=== PATIENT | female | born 1965 | race Caucasian/White ===

== ENCOUNTER 2021-04-22 08:23 | Inpatient (IN) | payer OTHER ==
--- NOTE | 2021-04-22 09:06 | ED ---
Abdominal Pain HPI - General Chief Complaint: Abdominal Pain Stated Complaint: abd bloating Time Seen by Provider: 04/22/21 08:35 Source: patient, RN notes reviewed Mode of arrival: ambulatory Limitations: no limitations - History of Present Illness Initial Comments: 55-year-old female presents emergency Department chief complaint of abdominal pain, swelling. Patient states that she has known liver disease and which she has had paracentesis in the past she states she's not had any issues in over a year denies any alcohol use. She states she is 2 years sober. Patient states that she has extensive swelling especially in her abdomen and lower legs she is on 2 diuretics currently. She has fevers or chills. Patient also has noticed that she has some yellowing of her skin and eyes. - Related Data Home Medications Medication Instructions Recorded Confirmed Ibuprofen [Advil] 600 mg PO Q8HR PRN 05/29/15 04/22/21 Multivit with Calcium,Iron,Min 1 tab PO DAILY 05/29/15 04/22/21 [Women's Daily Multivitamin] Omeprazole [PriLOSEC] 20 mg PO AC-BID 05/29/15 04/22/21 Albuterol Sulfate [Proair Hfa] 1 - 2 puff INHALATION RT-QID PRN 04/22/21 04/22/21 Cholecalciferol [Vitamin D3 (25 25 mcg PO DAILY 04/22/21 04/22/21 Mcg = 1000 Iu)] Folic Acid 0.8 mg PO DAILY 04/22/21 04/22/21 Furosemide [Lasix] 20 mg PO DAILY 04/22/21 04/22/21 Liver Aid 1 tab PO DAILY 04/22/21 04/22/21 Magnesium 250 mg PO DAILY 04/22/21 04/22/21 Milk Thistle 150 mg PO DAILY 04/22/21 04/22/21 Potassium Gluconate 99 mg PO DAILY 04/22/21 04/22/21 Spironolactone [Aldactone] 50 mg PO DAILY 04/22/21 04/22/21 Allergies Allergy/AdvReac Type Severity Reaction Status Date / Time No Known Allergies Allergy Verified 04/22/21 09:09 Review of Systems ROS Statement: Those systems with pertinent positive or pertinent negative responses have been documented in the HPI. ROS Other: All systems not noted in ROS Statement are negative. Past Medical History Past Medical History: GERD/Reflux, Liver Disease Additional Past Medical History / Comment(s): Blood in stool, cirrhosis of liver History of Any Multi-Drug Resistant Organisms: None Reported Past Surgical History: Hysterectomy, Tubal Ligation Past Anesthesia/Blood Transfusion Reactions: No Reported Reaction Past Psychological History: No Psychological Hx Reported Smoking Status: Former smoker Past Alcohol Use History: None Reported Past Drug Use History: None Reported - Past Family History Mother Family Medical History: Cancer General Exam Limitations: no limitations General appearance: alert, in no apparent distress Head exam: Present: atraumatic, normocephalic, normal inspection Eye exam: Present: PERRL, EOMI, scleral icterus. Absent: normal appearance, conjunctival injection, periorbital swelling ENT exam: Present: normal exam, normal oropharynx, mucous membranes moist, TM's normal bilaterally Neck exam: Present: normal inspection, full ROM. Absent: tenderness, meningismus, lymphadenopathy Respiratory exam: Present: normal lung sounds bilaterally. Absent: respiratory distress, wheezes, rales, rhonchi, stridor Cardiovascular Exam: Present: regular rate, normal rhythm, normal heart sounds. Absent: systolic murmur, diastolic murmur, rubs, gallop, clicks GI/Abdominal exam: Present: soft, distended, tenderness, rigid, normal bowel sounds. Absent: guarding, rebound Extremities exam: Present: normal capillary refill, pedal edema. Absent: calf tenderness Neurological exam: Present: alert Course Vital Signs 04/22/21 08:30 Temperature 99.4 F Pulse Rate 84 Respiratory 16 Rate Blood Pressure 105/64 O2 Sat by Pulse 98 Oximetry Medical Decision Making - Medical Decision Making 55-year-old female presents emergency Department chief complaint of jaundice, abdominal pain and swelling. Patient's found to have very large on of ascites, abdominal distention. Bilirubin is 5.5. Patient is found is currently. Patiently admitted for paracentesis, GI evaluation. - Lab Data Result diagrams: 04/22/21 09:03 Lab Results 04/22/21 04/22/21 04/22/21 Range/Units 09:03 09:03 09:03 PT 11.8 (9.0-12.0) sec INR 1.1 (<1.2) APTT 27.0 (22.0-30.0) sec Sodium 136 L (137-145) mmol/L Potassium 3.5 (3.5-5.1) mmol/L Chloride 102 (98-107) mmol/L Carbon Dioxide 27 (22-30) mmol/L Anion Gap 7 mmol/L BUN 5 L (7-17) mg/dL Creatinine 0.77 (0.52-1.04) mg/dL Est GFR (CKD-EPI)AfAm >90 (>60 ml/min/1.73 sqM) Est GFR (CKD-EPI)NonAf 87 (>60 ml/min/1.73 sqM) Glucose 102 H (74-99) mg/dL Plasma Lactic Acid Xander (0.7-2.0) mmol/L Calcium 8.9 (8.4-10.2) mg/dL Magnesium 1.9 (1.6-2.3) mg/dL Total Bilirubin 5.5 H (0.2-1.3) mg/dL AST 106 H (14-36) U/L ALT 19 (4-34) U/L Alkaline Phosphatase 449 H (38-126) U/L Total Protein 6.7 (6.3-8.2) g/dL Albumin 3.2 L (3.5-5.0) g/dL Amylase 42 (30-110) U/L Lipase 128 (23-300) U/L Urine Color Dark Yellow Urine Appearance Cloudy H (Clear) Urine pH 6.5 (5.0-8.0) Ur Specific [place] 1.011 (1.001-1.035) Urine Protein Trace H (Negative) Urine Glucose (UA) Negative (Negative) Urine Ketones Negative (Negative) Urine Blood Negative (Negative) Urine Nitrite Negative (Negative) Urine Bilirubin 2+ H (Negative) Urine Urobilinogen 12.0 (<2.0) mg/dL Ur Leukocyte Esterase Negative (Negative) Urine RBC 1 (0-5) /hpf Urine WBC 7 H (0-5) /hpf Ur Squamous Epith Cells 17 H (0-4) /hpf Amorphous Sediment Rare H (None) /hpf Urine Bacteria Occasional H (None) /hpf Hyaline Casts 5 H (0-2) /lpf Urine Mucus Rare H (None) /hpf 07/26/21 Range/Units 09:03 PT (9.0-12.0) sec INR (<1.2) APTT (22.0-30.0) sec Sodium (137-145) mmol/L Potassium (3.5-5.1) mmol/L Chloride (98-107) mmol/L Carbon Dioxide (22-30) mmol/L Anion Gap mmol/L BUN (7-17) mg/dL Creatinine (0.52-1.04) mg/dL Est GFR (CKD-EPI)AfAm (>60 ml/min/1.73 sqM) Est GFR (CKD-EPI)NonAf (>60 ml/min/1.73 sqM) Glucose (74-99) mg/dL Plasma Lactic Acid Xander 2.6 H* (0.7-2.0) mmol/L Calcium (8.4-10.2) mg/dL Magnesium (1.6-2.3) mg/dL Total Bilirubin (0.2-1.3) mg/dL AST (14-36) U/L ALT (4-34) U/L Alkaline Phosphatase (38-126) U/L Total Protein (6.3-8.2) g/dL Albumin (3.5-5.0) g/dL Amylase (30-110) U/L Lipase (23-300) U/L Urine Color Urine Appearance (Clear) Urine pH (5.0-8.0) Ur Specific [place] (1.001-1.035) Urine Protein (Negative) Urine Glucose (UA) (Negative) Urine Ketones (Negative) Urine Blood (Negative) Urine Nitrite (Negative) Urine Bilirubin (Negative) Urine Urobilinogen (<2.0) mg/dL Ur Leukocyte Esterase (Negative) Urine RBC (0-5) /hpf Urine WBC (0-5) /hpf Ur Squamous Epith Cells (0-4) /hpf Amorphous Sediment (None) /hpf Urine Bacteria (None) /hpf Hyaline Casts (0-2) /lpf Urine Mucus (None) /hpf Disposition Clinical Impression: Liver cirrhosis, Jaundice, Ascites Disposition: ADMITTED IP TO THIS [facility] Condition: Fair Referrals: None,Stated [Primary Care Provider] - 1-2 days
[2021-04-22 09:45] LABS: ALT 19 U/L (4-34); AST 106 U/L (14-36); African American GFR (CKD) >90 (>60 ml/min/1.73 sqM); Albumin 3.2 g/dL (3.5-5.0); Alkaline Phosphatase 449 U/L (38-126); Amylase 42 U/L (30-110); Anion Gap 7 mmol/L; Blood Urea Nitrogen 5 mg/dL (7-17); Calcium 8.9 mg/dL (8.4-10.2); Carbon Dioxide 27 mmol/L (22-30); Chloride 102 mmol/L (98-107); Glucose 102 mg/dL (74-99); Lipase 128 U/L (23-300); Magnesium 1.9 mg/dL (1.6-2.3); Non-African American GFR(CKD) 87 (>60 ml/min/1.73 sqM); Potassium 3.5 mmol/L (3.5-5.1); Sodium 136 mmol/L (137-145); Total Bilirubin 5.5 mg/dL (0.2-1.3); Total Protein 6.7 g/dL (6.3-8.2)
[2021-04-22 09:52] LABS: Amorphous Sediment,Urine Rare /hpf; Appearance,Urine Cloudy (Clear); Bacteria,Urine Occasional /hpf; Bilirubin,Urine 2+ (Negative); Blood,Urine Negative (Negative); Color,Urine Dark Yellow; Glucose,Urine (UA) Negative (Negative); Hyaline Casts,Urine 5 /lpf (0-2); Ketones,Urine Negative (Negative); Leukocyte Esterase,Urine Negative (Negative); Mucus,Urine Rare /hpf; Nitrite,Urine Negative (Negative); PH, Urine 6.5 (5.0-8.0); Protein,Urine Trace (Negative); RBC,Urine 1 /hpf (0-5); Specific Gravity,Urine 1.011 (1.001-1.035); Squamous Epithelial Cell,Urine 17 /hpf (0-4); WBC,Urine 7 /hpf (0-5)
[2021-04-22 09:53] LABS: INR 1.1 (<1.2); Prothrombin Time 11.8 sec (9.0-12.0)
[2021-04-22] MEDS ORDERED: NALOXONE 0.4 MG/ML 1 ML VIAL IV PRN (10:07)
[2021-04-22] MEDS ORDERED: ONDANSETRON 4 MG/2 ML VIAL IVP PRN (10:07)
[2021-04-22 10:10] LABS: Basophils % (A) 1 %; Eosinophils % (A) 0 %; HCT 35.1 % (34.0-46.0); HGB 11.5 gm/dL (11.4-16.0); Lymphocytes # (A) 1.6 k/uL (1.0-4.8); Lymphocytes % (A) 20 %; MCH 36.3 pg (25.0-35.0); MCHC 32.7 g/dL (31.0-37.0); MCV 111.1 fL (80.0-100.0); Macrocytosis Marked; Mean Platelet Volume 8.3; Monocytes # (A) 0.4 k/uL (0-1.0); Monocytes % (A) 5 %; Neutrophils % (A) 72 %; Platelet Count 304 k/uL (150-450); RBC 3.16 m/uL (3.80-5.40); RDW 14.5 % (11.5-15.5); WBC 8.3 k/uL (3.8-10.6)
[2021-04-22] MEDS: HYDROmorphone 0.5 MG/0.5 ML SYRINGE IVP PRN ×4 (12:01→23:18)
[2021-04-22] MEDS ORDERED: ALBUTEROL NEBULIZED 2.5 MG/3 ML INHALATION PRN (13:24)
--- NOTE | 2021-04-22 13:28 | US ---
EXAMINATION TYPE: US abdomen limited DATE OF EXAM: 04/22/2021 COMPARISON: NONE CLINICAL HISTORY: 55-year-old female assess for fluid pocket please . Ascites check TECHNIQUE: Multiple sonographic images of the 4 abdominal quadrants for assessment of ascites fluid. FINDINGS: Trace to mild fluid seen within RUQ, RLQ and LLQ. No fluid seen in LUQ. IMPRESSION: Trace to mild abdominal ascites fluid noted within the right side of the abdomen and also within the left lower quadrant.
[2021-04-22] MEDS: diphenhydrAMINE 25 MG CAP PO PRN ×2 (13:34→20:10)
[2021-04-22] MEDS ORDERED: FUROSEMIDE 10 MG/ML 4 ML VIAL IV STA (13:42)
--- NOTE | 2021-04-22 14:54 | US ---
EXAMINATION TYPE: US liver DATE OF EXAM: 04/22/2021 COMPARISON: None CLINICAL HISTORY: 55-year-old female ascites, new jaundice, please assess gallbladder. RLQ pain EXAM MEASUREMENTS: Liver Length: 19.8 cm Gallbladder Wall: 0.4 cm CBD: 0.4 cm Right Kidney: 10.2 x 5.0 x 3.9 cm Pancreas: Echogenic. The body and tail is obscured by overlying bowel gas Liver: abnormally enlarged; ascites is noted surrounding; portal vein flow is noted to liver, veloci ty between 10 and 15 cm/s; hepatic vein flow is not detected within the liver just at the IVC. Gallbladder: multiple gallstones/sludge seen in neck mid and fundus and still present at neck in LLD position and fundal gallstones also seen. No abnormal gallbladder distention. The wall is borderline to mildly thickened. Evidence for sonographic Sandy's sign: no CBD: wnl Right Kidney: No hydronephrosis. IMPRESSION: 1. No biliary ductal dilatation. 2. Cholelithiasis. There is nonspecific borderline to mild gallbladder wall thickening. No hydropic c hange to further support acute cholecystitis. If further imaging evaluation of the gallbladder is vladimir ired, HIDA scan can be considered. 3. Mild perihepatic ascites visualized. 4. Borderline diminished portal vein velocity. If there is underlying hepatitis or cirrhosis, finding s may reflect early portal venous hypertension. 5. The cardiograph operator was unable to visualize distal hepatic vein flow on color Doppler. This is most li zunilda on a technical basis. To ensure patency, consideration can be given to either Doppler ultrasound follow-up versus contrast-enhanced CT performed in the late portal venous phase (approximately 80 se c delay)
--- NOTE | 2021-04-22 14:56 | P.HPIM ---
History of Present Illness H&P Date: 04/22/21 Chief Complaint: abdominal distension Patient is a 55-year-old female with a history of cirrhosis, GERD, and prior tobacco abuse who presented to the ER with complaints of abdominal pain and swelling. On arrival her vital signs within normal limits. Laboratory analysis showed a lactic acid of 2.6, total bilirubin 5.5, AST 106, ALT 19, alkaline phosphatase 499. She was admitted for further monitoring and possible need for paracentesis. Patient seen and examined at bedside. Noticed increasingg edema in her legs and abdomen over the last 2 days, legs for the last couple of weeks. Started itching during that time. + SOB with exerction, +nuasea with intermittent vomiting that is chorinc. Did have 2 beers a couple of days ago, otherwise as maintained sobriety for years. Last time she needed paracentesis was 1 year ago. Hx of higher doses of lasix and spironolactone but then we decreased back to her lowe dose. Cirrhosis is from hx of alcoholism. Follows with Dr. Bolanos ([facility]) in [facility] where she lives. Pertinent positives and negatives as discussed in HPI, a complete review of systems was performed and all other systems are negative. Patient seen and examined at bedside. General: non toxic, no distress, appears at stated age Derm: + Jaundice, warm, dry Head: atraumatic, normocephalic, symmetric Eyes: EOMI, no lid lag, + icteric sclera, pupils equal round reactive to light ENT: Nose and ears atraumatic, no thrush, no pharyngeal erythema Neck: No thyromegaly, no cervical lymphadenopathy, trachea midline, supple Mouth: no lip lesion, mucus membranes moist Cardiovascular: S1S2 reg, no murmur, positive posterior tibial pulse bilateral, 2+ edema, capillary refill less than 2 seconds Lungs: clear to ascultation bilateral, no ronchi, no rales, no wheeze, no accessory muscle use Abdominal: soft, + distended, + tender to palpation RUQ, no guarding, no appreciable organomegaly, normal bowel sounds Ext: no gross muscle atrophy, muscle strength muscle strength 5 out of 5 in all 4 extremities, no contractures Neuro: CN II-XI grossly intact, light touch intact all 4 extremities, finger to nose within normal limits, Psych: Alert, oriented, appropriate affect Decompensated cirrhosis secondary to prior alcoholism -Consult IR for paracentesis -IV Lasix, spironolactone -GI recommendations Transaminitis with elevated bilirubin -Patient with recent worsening jaundice -Check liver Doppler and gallbladder ultrasound -Repeat CMP in a.m. COPD without exacerbation -Resume ipratropium, patient takes spiriva on outpatient basis -When necessary bronchodilators The patient is admitted with an anticipated greater than 2 midnight stay for evaluation of Decompensated cirrhosis. Surrogate decision-maker: daughter DVT prophylaxis: SCDs Discussed with: patient, nursing Anticipated discharge date: in 1-[address]: home A total of 65 minutes was spent on the care of this complex patient more than 50% of the time was spent in counseling and care coordination. Past Medical History Past Medical History: GERD/Reflux, Liver Disease Additional Past Medical History / Comment(s): Blood in stool, cirrhosis of liver due to alcoholsim, COPD History of Any Multi-Drug Resistant Organisms: None Reported Past Surgical History: Hysterectomy, Tubal Ligation Additional Past Surgical History / Comment(s): liver biopsy Past Anesthesia/Blood Transfusion Reactions: No Reported Reaction Past Psychological History: No Psychological Hx Reported Smoking Status: Former smoker Past Alcohol Use History: None Reported Past Drug Use History: None Reported Additional Drug Use History / Comment(s): hx of alcholism, had a beer 2 nights ago Additional History: L[facility] IN [facility] - Past Family History Mother Family Medical History: Cancer Medications and Allergies Home Medications Medication Instructions Recorded Confirmed Type Ibuprofen [Advil] 600 mg PO Q8HR PRN 05/29/15 04/22/21 History Multivit with Calcium,Iron,Min 1 tab PO DAILY 05/29/15 04/22/21 History [Women's Daily Multivitamin] Omeprazole [PriLOSEC] 20 mg PO AC-BID 05/29/15 04/22/21 History Albuterol Sulfate [Proair Hfa] 1 - 2 puff INHALATION RT-QID PRN 04/22/21 04/22/21 History Cholecalciferol [Vitamin D3 (25 25 mcg PO DAILY 04/22/21 04/22/21 History Mcg = 1000 Iu)] Folic Acid 0.8 mg PO DAILY 04/22/21 04/22/21 History Furosemide [Lasix] 20 mg PO DAILY 04/22/21 04/22/21 History Liver Aid 1 tab PO DAILY 04/22/21 04/22/21 History Magnesium 250 mg PO DAILY 04/22/21 04/22/21 History Milk Thistle 150 mg PO DAILY 04/22/21 04/22/21 History Potassium Gluconate 99 mg PO DAILY 04/22/21 04/22/21 History Spironolactone [Aldactone] 50 mg PO DAILY 04/22/21 04/22/21 History Allergies Allergy/AdvReac Type Severity Reaction Status Date / Time No Known Allergies Allergy Verified 04/22/21 09:09 Physical Exam Osteopathic Statement: *. No significant issues noted on an osteopathic structural exam other than those noted in the History and Physical/Consult. Vitals: Vital Signs Temp Pulse Resp BP Pulse Ox 04/22/21 12:00 75 18 105/64 97 04/22/21 10:45 98.9 F 79 18 108/54 97 04/22/21 08:30 99.4 F 84 16 105/64 98 Intake and Output 04/21/21 04/22/21 04/22/21 22:59 06:59 14:59 Other: Weight 95.254 kg Results CBC & Chem 7: 04/22/21 09:03 04/22/21 09:03 Labs: Abnormal Lab Results - Last 24 Hours (Table) 04/22/21 04/22/21 04/22/21 Range/Units 09:03 09:03 09:03 RBC 3.16 L (3.80-5.40) m/uL MCV 111.1 H (80.0-100.0) fL MCH 36.3 H (25.0-35.0) pg Macrocytosis Marked A Sodium 136 L (137-145) mmol/L BUN 5 L (7-17) mg/dL Glucose 102 H (74-99) mg/dL Plasma Lactic Acid Xander (0.7-2.0) mmol/L Total Bilirubin 5.5 H (0.2-1.3) mg/dL AST 106 H (14-36) U/L Alkaline Phosphatase 449 H (38-126) U/L Albumin 3.2 L (3.5-5.0) g/dL Urine Appearance Cloudy H (Clear) Urine Protein Trace H (Negative) Urine Bilirubin 2+ H (Negative) Urine WBC 7 H (0-5) /hpf Ur Squamous Epith Cells 17 H (0-4) /hpf Amorphous Sediment Rare H (None) /hpf Urine Bacteria Occasional H (None) /hpf Hyaline Casts 5 H (0-2) /lpf Urine Mucus Rare H (None) /hpf 04/22/21 Range/Units 09:03 RBC (3.80-5.40) m/uL MCV (80.0-100.0) fL MCH (25.0-35.0) pg Macrocytosis Sodium (137-145) mmol/L BUN (7-17) mg/dL Glucose (74-99) mg/dL Plasma Lactic Acid Xander 2.6 H* (0.7-2.0) mmol/L Total Bilirubin (0.2-1.3) mg/dL AST (14-36) U/L Alkaline Phosphatase (38-126) U/L Albumin (3.5-5.0) g/dL Urine Appearance (Clear) Urine Protein (Negative) Urine Bilirubin (Negative) Urine WBC (0-5) /hpf Ur Squamous Epith Cells (0-4) /hpf Amorphous Sediment (None) /hpf Urine Bacteria (None) /hpf Hyaline Casts (0-2) /lpf Urine Mucus (None) /hpf
[2021-04-22] MEDS ORDERED: FUROSEMIDE 40 MG TAB PO SCH (16:00)
[2021-04-22] MEDS: IPRATROPIUM 0.5 MG/2.5 ML NEBU INHALATION SCH ×2 (17:42→18:35)
--- NOTE | 2021-04-22 21:02 | CONS ---
CONSULTATION DATE OF SERVICE: 04/23/2021 REQUESTING PHYSICIAN: Dr. Jane Ordonez. REASON FOR CONSULTATION: Abdominal distention and ascites. HISTORY OF PRESENT ILLNESS: The patient is a 55-year-old pleasant white female who was diagnosed with alcoholic cirrhosis of the liver about 2 years ago while she was living in [place]. She is visiting this area to spend the summer for 3 months and for the last 2 or 3 weeks she is having gradual abdominal distention with progressive weight gain and lower extremity swelling. She came to the emergency room and subsequently admitted to the hospital for further management. She thinks she gained about 10 or 15 pounds in the last several weeks. She denies any abdominal pain, but she does have some abdominal discomfort, especially in the suprapubic area where she has significant swelling noted. She denies any nausea, vomiting. No rectal bleeding or melena. Patient states that she was diagnosed with alcoholic cirrhosis of the liver about 2 years ago and she quit drinking alcohol at that time. She underwent paracentesis about a year ago and after that she was maintained on diuretics with Lasix 20 mg daily and Aldactone 50 mg daily. In the ER she did have abdominal ultrasound done which showed trace to mild amount of abdominal ascites. PAST MEDICAL HISTORY: Significant for alcoholic cirrhosis of the liver diagnosed about 2 years ago, paracentesis about a year ago, history of GERD, anxiety. PAST SURGICAL HISTORY: Hysterectomy, tubal ligation. MEDICATIONS: Medications at home include potassium, Aldactone, magnesium, Lasix, Advil, vitamin D3, albuterol. ALLERGIES: None. SOCIAL HISTORY: Former smoker. History of heavy alcohol use for many years, quit drinking about 2 years ago. FAMILY HISTORY: Mother had some kind of cancer. REVIEW OF SYSTEMS: CARDIOPULMONARY: No chest pain or shortness of breath. : No dysuria or hematuria. MUSCULOSKELETAL: Unremarkable. SKIN: Unremarkable. ENDOCRINE: Unremarkable. PSYCHIATRY: Unremarkable. NEUROLOGY: Generalized weakness. ENT/VISION: Unremarkable. CONSTITUTIONAL: Weight gain of 20 pounds. No fever, chills, or night sweats. PHYSICAL EXAMINATION: She appears comfortable. No apparent distress. VITAL SIGNS: Stable. Blood pressure is 105/64, pulse is 75, temperature 98.9. HEENT examination unremarkable. Conjunctivae pink. Sclerae anicteric. Oral cavity no lesions. NECK no JVD or lymph node enlargement. CHEST was clear to auscultation. HEART: Regular rate and rhythm. ABDOMEN: Distended. It was obese. There was significant amount of edema on the anterior abdominal wall and mostly in the suprapubic area. EXTREMITIES: 2+ pedal edema. SKIN: No rashes. NEURO: She is alert and oriented x3. No focal deficits. LABS: From today WBC 8.3, hemoglobin 11.5, platelets normal. PTT INR is within normal limits. Sodium 136, potassium 3.5, chloride 102, CO2 27, BUN 5, creatinine 0.77. AST 106, ALT 19, T bilirubin 5.5, alkaline phosphatase 449. IMPRESSION: 1. Abdominal distention for the last few weeks duration associated with lower extremity swelling. Ultrasound showed trace to mild ascites noted. The patient has significant anterior wall abdominal edema causing abdominal distention based on the imaging studies. She is on Lasix 20 and Aldactone 50 mg daily for the last one year. 2. Alcoholic cirrhosis of the liver with gradual decompensation. 3. Elevated LFTs and jaundice all related to chronic alcoholic liver disease. RECOMMENDATIONS: 1. Increase the Lasix to 40 mg twice daily and Aldactone 100 mg daily. 2. Low-salt diet. 3. Await final report of the ultrasound of the abdomen. 4. Monitor labs closely. 5. We will follow with you. Thank you for this consultation. MMODL / IJN: [id number] /
[2021-04-22] MEDS: FUROSEMIDE 10 MG/ML 4 ML VIAL IV SCH (21:11)
[2021-04-23] MEDS: HYDROmorphone 0.5 MG/0.5 ML SYRINGE IVP PRN ×7 (02:26→22:24)
[2021-04-23 06:21] LABS: HCT 34.5 % (34.0-46.0); HGB 11.2 gm/dL (11.4-16.0); MCH 36.5 pg (25.0-35.0); MCHC 32.5 g/dL (31.0-37.0); MCV 112.2 fL (80.0-100.0); Mean Platelet Volume 8.6; Platelet Count 293 k/uL (150-450); RBC 3.07 m/uL (3.80-5.40); RDW 13.6 % (11.5-15.5); WBC 8.9 k/uL (3.8-10.6)
[2021-04-23 06:38] LABS: Macrocytosis Marked
[2021-04-23] MEDS: IPRATROPIUM 0.5 MG/2.5 ML NEBU INHALATION SCH ×4 (07:05→19:14)
[2021-04-23] MEDS: SPIRONOLACTONE 25 MG TAB PO SCH (07:14)
[2021-04-23] MEDS: FUROSEMIDE 10 MG/ML 4 ML VIAL IV SCH ×2 (07:14→20:30)
[2021-04-23 11:51] LABS: African American GFR (CKD) 72.9 (60.0-200.0); Albumin 3.4 g/dL (3.80-4.90); Albumin/Globulin Ratio 1.03 (1.60-3.17); Anion Gap 11.3 mmol/L (4.00-12.00); Calcium 8.6 mg/dL (8.7-10.3); Carbon Dioxide 29.7 mmol/L (21.6-31.8); Globulin 3.3 g/dL (1.6-3.3); Non-African American GFR(CKD) 62.9 (60.0-200.0); Potassium 3.2 mmol/L (3.5-5.5); Total Bilirubin 6.1 mg/dL (0.2-1.2); Total Protein 6.7 g/dL (6.2-8.2)
[2021-04-23 11:58] LABS: INR 1.16 (0.90-1.11); Prothrombin Time 12.5 sec (9.9-11.9)
[2021-04-23] MEDS ORDERED: POTASSIUM CHLORIDE ER 20 MEQ TAB.ER PO STA (12:38)
--- NOTE | 2021-04-23 13:24 | P.PN ---
Subjective Progress Note Date: 04/23/21 Principal diagnosis: abdominal pain Patient is a 55-year-old female with a history of cirrhosis, GERD, and prior tobacco abuse who presented to the ER with complaints of abdominal pain and swelling. On arrival her vital signs within normal limits. Laboratory analysis showed a lactic acid of 2.6, total bilirubin 5.5, AST 106, ALT 19, alkaline phosphatase 499. She was admitted for further monitoring and possible need for paracentesis. Liver US demonstrated no significant ascities. She did have a liver doppler and gallbladder US which showed gallstone and borderline dimmin ished portal vein velocity. She was started on lasix IVP and her spironolactone was increased. Patient seen and examined at bedside. She reports that she is having less abdominal pain and yesterday. She thinks she eats quite a bit yesterday with the Lasix but has had less urine output today. She denies any nausea or vomiting. General: non toxic, no distress, appears at stated age Derm: + Jaundice warm, dry Head: atraumatic, normocephalic, symmetric Eyes: EOMI, no lid lag, + icteric sclera Mouth: no lip lesion, mucus membranes moist Cardiovascular: S1S2 reg, no murmur, positive posterior tibial pulse bilateral, Lungs: CTA bilateral, no rhonchi, no rales , no accessory muscle use Abdominal: soft, distended, nontender to palpation, no guarding, no appreciable organomegaly Ext: no gross muscle atrophy, 1+ edema, no contractures Neuro: CN II-XI grossly intact, no focal neuro deficits Psych: Alert, oriented, appropriate affect Decompensated cirrhosis secondary to prior alcoholism -Not enough fluid for paracentesis -IV Lasix, spironolactone -GI recommendations appreciated -Bilirubin elevating, will repeat in a.m. Transaminitis with elevated bilirubin -Patient with recent worsening jaundice -Patient's gallbladder ultrasound with asymptomatic cholelithiasis, no dilated common bile duct, no definitive portal vein thrombosis -GI recommendations -Repeat CMP in a.m. COPD without exacerbation -Resume ipratropium, patient takes spiriva on outpatient basis, patient now thinks she takes Symbicort on an outpatient basis -When necessary bronchodilators Obesity, BMI 40.1 - likely secondary to fluid retention - outpatient structured weight loss DVT prophylaxis: SCDs Discussed with: patient, nursing Anticipated discharge date: in 1-[address]: home A total of 65 minutes was spent on the care of this complex patient more than 50% of the time was spent in counseling and care coordination. Objective - Vital Signs Vital signs: Vital Signs Temp 97.5 F L 04/23/21 12:14 Pulse 74 04/23/21 12:14 Resp 18 04/23/21 12:14 BP 102/65 04/23/21 12:14 Pulse Ox 97 04/23/21 12:14 Intake & Output 04/22/21 04/23/21 04/23/21 18:59 06:59 18:59 Intake Total 240 Balance 240 Weight 95.254 kg 96.2 kg Intake: Oral 240 Other: # Voids 1 - Labs CBC & Chem 7: 04/23/21 05:41 04/23/21 05:41 Labs: Abnormal Lab Results - Last 24 Hours (Table) 04/23/21 04/23/21 04/23/21 Range/Units 05:41 05:41 05:41 RBC 3.07 L (3.80-5.40) m/uL Hgb 11.2 L (11.4-16.0) gm/dL MCV 112.2 H (80.0-100.0) fL MCH 36.5 H (25.0-35.0) pg Macrocytosis Marked A PT 12.5 H (9.9-11.9) sec INR 1.16 H (0.90-1.11) Potassium 3.2 L (3.5-5.5) mmol/L BUN 7.0 L (9.0-27.0) mg/dL BUN/Creatinine Ratio 7.00 L (12.00-20.00) Ratio Calcium 8.6 L (8.7-10.3) mg/dL Total Bilirubin 6.1 H (0.2-1.2) mg/dL AST 116 H (13-35) U/L Alkaline Phosphatase 411 H (41-126) U/L Albumin 3.40 L (3.80-4.90) g/dL Albumin/Globulin Ratio 1.03 L (1.60-3.17) g/dL
--- NOTE | 2021-04-23 16:38 | P.PN ---
Subjective Progress Note Date: 04/23/21 Principal diagnosis: Ascites, jaundice The 5-year-old female diagnosed with alcoholic cirrhosis of the liver about 2 years ago while living in [place]. She is currently visiting the area for the summer and for the last 2-3 weeks duration she's been having gradual abdominal distention with progressive weight gain and lower extremity swelling. Patient thinks she gained about 10-15 pounds the last several weeks. She's had extensive workup in [place] for cirrhosis of the liver, including a liver biopsy, EGD, and laboratory work. She has been maintained on Lasix 20 mg daily and Aldactone 50 mg daily. Abdominal ultrasound showed a trace to mild amount of ascites, unable to perform paracentesis. She had a liver ultrasound showed no biliary ductal dilation, cholelithiasis, there is nonspecific borderline to mild gallbladder wall thickening. No hydropic change to further support acute cholecystitis. Mild. Hepatic ascites, borderline diminished portal vein velocity. There is underlying hepatitis or cirrhosis findings may reflect early portal venous hypertension. Today the patient states she still having lower abdominal discomfort due to edema. Lower extremity edema has improved. She denies any nausea, vomiting, or fever. She is tolerating her diet. Objective - Vital Signs Vital signs: Vital Signs Temp 98.2 F 04/23/21 04:47 Pulse 82 04/23/21 07:16 Resp 16 04/23/21 04:47 BP 92/56 04/23/21 04:47 Pulse Ox 97 04/23/21 04:47 Intake & Output 04/22/21 04/23/21 04/23/21 18:59 06:59 18:59 Intake Total 240 Balance 240 Weight 95.254 kg 96.2 kg Intake: Oral 240 Other: # Voids 1 - Exam General appearance: The patient is alert, oriented, appears in no acute distress. HET: Head is normocephalic and atraumatic. Conjunctiva pink. Sclera anicteric. Neck: Supple without lymphadenopathy. Abdomen: Soft, tenderness in lower abdominal quadrant, anasarca, nondistended with bowel sounds. No guarding or rigidity. Extremities: Normal skin color and turgor. Lower extremity edema. Skin: No rashes, no jaundice Neurological: No focal deficits. Alert and oriented 3. - Labs CBC & Chem 7: 04/23/21 05:41 04/23/21 05:41 Labs: Abnormal Lab Results - Last 24 Hours (Table) 04/22/21 04/23/21 Range/Units 09:03 05:41 RBC 3.16 L 3.07 L (3.80-5.40) m/uL Hgb 11.2 L (11.4-16.0) gm/dL MCV 111.1 H 112.2 H (80.0-100.0) fL MCH 36.3 H 36.5 H (25.0-35.0) pg Macrocytosis Marked A Marked A Assessment and Plan (1) Abdominal pain Narrative/Plan: This is a 55-year-old female who presented to the emergency department with abdominal distention for the last few weeks duration associated with lower extremity swelling. She's had abdominal discomfort due to the distention. Ultrasound showed trace to mild ascites. The patient has had significant anterior wall edema causing abdominal distention based on the imaging studies. She is currently maintained on Lasix 20 mg and Aldactone 50 mg daily for the last 1 year. Current Visit: Yes Status: Acute Code(s): R10.9 - UNSPECIFIED ABDOMINAL PAIN SNOMED Code(s): 66101985 (2) Alcoholic cirrhosis of liver Narrative/Plan: Patient was diagnosed with alcoholic cirrhosis of the liver with gradual decompensation 2 years ago and is treated in [place]. She has elevated LFTs and jaundice related to chronic alcoholic liver disease. Current Visit: Yes Status: Acute Code(s): K70.30 - ALCOHOLIC CIRRHOSIS OF LIVER WITHOUT ASCITES SNOMED Code(s): 479540285 (3) Lower extremity edema Current Visit: Yes Status: Acute Code(s): R60.0 - LOCALIZED EDEMA SNOMED Code(s): 552449035 Plan: 1. Continue symptomatic and supportive care 2. Continue Lasix 40 mg twice daily and Aldactone 100 mg daily 3. Low-sodium diet 4. Liver ultrasound reviewed 5. Continue to monitor LFTs daily Thank you for this consultation, we will continue to follow. Dr. Guevara Jefferson I agree with the dictator's note, documented as a scribe by Widla Rose.
[2021-04-23] MEDS: diphenhydrAMINE 25 MG CAP PO PRN (19:16)
[2021-04-24 05:34] LABS: HCT 34.7 % (34.0-46.0); HGB 11.2 gm/dL (11.4-16.0); MCH 36.3 pg (25.0-35.0); MCHC 32.3 g/dL (31.0-37.0); MCV 112.3 fL (80.0-100.0); Macrocytosis Marked; Mean Platelet Volume 8.1; Platelet Count 321 k/uL (150-450); RBC 3.09 m/uL (3.80-5.40); RDW 14.2 % (11.5-15.5); WBC 8.6 k/uL (3.8-10.6)
[2021-04-24 05:39] LABS: ALT 19 U/L (4-34); AST 139 U/L (14-36); African American GFR (CKD) 58 (>60 ml/min/1.73 sqM); Albumin 3.5 g/dL (3.5-5.0); Alkaline Phosphatase 409 U/L (38-126); Anion Gap 12 mmol/L; Blood Urea Nitrogen 9 mg/dL (7-17); Calcium 8.9 mg/dL (8.4-10.2); Carbon Dioxide 29 mmol/L (22-30); Chloride 96 mmol/L (98-107); Globulin 3.6 g/dL; Glucose 107 mg/dL (74-99); Magnesium 1.7 mg/dL (1.6-2.3); Non-African American GFR(CKD) 50 (>60 ml/min/1.73 sqM); Potassium 3.5 mmol/L (3.5-5.1); Sodium 137 mmol/L (137-145); Total Bilirubin 5.6 mg/dL (0.2-1.3); Total Protein 7.1 g/dL (6.3-8.2)
[2021-04-24] MEDS: IPRATROPIUM 0.5 MG/2.5 ML NEBU INHALATION SCH ×4 (07:04→20:02)
[2021-04-24] MEDS: SPIRONOLACTONE 25 MG TAB PO SCH (07:24)
[2021-04-24] MEDS: FUROSEMIDE 10 MG/ML 4 ML VIAL IV SCH ×2 (07:24→19:31)
[2021-04-24] MEDS: HYDROmorphone 0.5 MG/0.5 ML SYRINGE IVP PRN ×5 (07:24→19:31)
--- NOTE | 2021-04-24 10:11 | P.PN ---
Subjective Progress Note Date: 04/24/21 Principal diagnosis: Ascites, jaundice The 5-year-old female diagnosed with alcoholic cirrhosis of the liver about 2 years ago while living in [place]. She is currently visiting the area for the summer and for the last 2-3 weeks duration she's been having gradual abdominal distention with progressive weight gain and lower extremity swelling. Patient thinks she gained about 10-15 pounds the last several weeks. She's had extensive workup in [place] for cirrhosis of the liver, including a liver biopsy, EGD, and laboratory work. She has been maintained on Lasix 20 mg daily and Aldactone 50 mg daily. Abdominal ultrasound showed a trace to mild amount of ascites, unable to perform paracentesis. She had a liver ultrasound showed no biliary ductal dilation, cholelithiasis, there is nonspecific borderline to mild gallbladder wall thickening. No hydropic change to further support acute cholecystitis. Mild Hepatic ascites, borderline diminished portal vein velocity. There is underlying hepatitis or cirrhosis findings may reflect early portal venous hypertension. Today the patient states she still having lower abdominal discomfort due to edema, but states is improved some. Lower extremity edema has improved. She denies any nausea, vomiting, or fever. She is tolerating her diet. Liver enzymes stable. Objective - Vital Signs Vital signs: Vital Signs Temp 97.7 F 04/24/21 05:00 Pulse 76 04/24/21 07:12 Resp 16 04/24/21 05:00 BP 100/66 04/24/21 05:00 Pulse Ox 98 04/24/21 05:00 Intake & Output 04/23/21 04/24/21 04/24/21 18:59 06:59 18:59 Intake Total 1160 Balance 1160 Intake: Oral 1160 Other: # Voids 2 2 - Exam General appearance: The patient is alert, oriented, appears in no acute distress. HET: Head is normocephalic and atraumatic. Conjunctiva pink. Sclera anicteric. Neck: Supple without lymphadenopathy. Abdomen: Soft, tenderness in lower abdominal quadrant, anasarca, nondistended with bowel sounds. No guarding or rigidity. Extremities: Normal skin color and turgor. Lower extremity edema. Skin: No rashes, no jaundice Neurological: No focal deficits. Alert and oriented 3. - Labs CBC & Chem 7: 04/24/21 04:15 04/24/21 04:15 Labs: Abnormal Lab Results - Last 24 Hours (Table) 04/23/21 04/23/21 04/24/21 Range/Units 05:41 05:41 04:15 RBC 3.09 L (3.80-5.40) m/uL Hgb 11.2 L (11.4-16.0) gm/dL MCV 112.3 H (80.0-100.0) fL MCH 36.3 H (25.0-35.0) pg Macrocytosis Marked A PT 12.5 H (9.9-11.9) sec INR 1.16 H (0.90-1.11) Potassium 3.2 L (3.5-5.5) mmol/L Chloride (98-107) mmol/L BUN 7.0 L (9.0-27.0) mg/dL Creatinine (0.52-1.04) mg/dL BUN/Creatinine Ratio 7.00 L (12.00-20.00) Ratio Glucose (74-99) mg/dL Calcium 8.6 L (8.7-10.3) mg/dL Total Bilirubin 6.1 H (0.2-1.2) mg/dL AST 116 H (13-35) U/L Alkaline Phosphatase 411 H (41-126) U/L Albumin 3.40 L (3.80-4.90) g/dL Albumin/Globulin Ratio 1.03 L (1.60-3.17) g/dL 04/24/21 Range/Units 04:15 RBC (3.80-5.40) m/uL Hgb (11.4-16.0) gm/dL MCV (80.0-100.0) fL MCH (25.0-35.0) pg Macrocytosis PT (9.9-11.9) sec INR (0.90-1.11) Potassium (3.5-5.5) mmol/L Chloride 96 L (98-107) mmol/L BUN (9.0-27.0) mg/dL Creatinine 1.21 H (0.52-1.04) mg/dL BUN/Creatinine Ratio (12.00-20.00) Ratio Glucose 107 H (74-99) mg/dL Calcium (8.7-10.3) mg/dL Total Bilirubin 5.6 H (0.2-1.2) mg/dL AST 139 H (13-35) U/L Alkaline Phosphatase 409 H (41-126) U/L Albumin (3.80-4.90) g/dL Albumin/Globulin Ratio (1.60-3.17) g/dL Assessment and Plan (1) Abdominal pain Narrative/Plan: This is a 55-year-old female who presented to the emergency department with ab dominal distention for the last few weeks duration associated with lower extremity swelling. She's had abdominal discomfort due to the distention. Ultrasound showed trace to mild ascites. The patient has had significant anterior wall edema causing abdominal distention based on the imaging studies. She is currently maintained on Lasix 20 mg and Aldactone 50 mg daily for the last 1 year. Current Visit: Yes Status: Acute Code(s): R10.9 - UNSPECIFIED ABDOMINAL PAIN SNOMED Code(s): 36126864 (2) Alcoholic cirrhosis of liver Narrative/Plan: Patient was diagnosed with alcoholic cirrhosis of the liver with gradual decompensation 2 years ago and is treated in [place]. She has elevated LFTs and jaundice related to chronic alcoholic liver disease. Current Visit: Yes Status: Acute Code(s): K70.30 - ALCOHOLIC CIRRHOSIS OF LIVER WITHOUT ASCITES SNOMED Code(s): 039388461 (3) Lower extremity edema Current Visit: Yes Status: Acute Code(s): R60.0 - LOCALIZED EDEMA SNOMED Code(s): 973363648 Plan: 1. Continue symptomatic and supportive care 2. Continue Lasix 40 mg twice daily and Aldactone 100 mg daily 3. Low-sodium diet 4. Liver ultrasound reviewed 5. Continue to monitor LFTs daily Thank you for this consultation, the patient is cleared for discharge from gastroenterology. Dr. Guevara Jefferson I agree with the dictator's note, documented as a scribe by Wilda Rose.
--- NOTE | 2021-04-24 19:00 | P.PN ---
Subjective Progress Note Date: 04/24/21 Principal diagnosis: abdominal pain Patient is a 55-year-old female with a history of cirrhosis, GERD, and prior tobacco abuse who presented to the ER with complaints of abdominal pain and swelling. On arrival her vital signs within normal limits. Laboratory analysis showed a lactic acid of 2.6, total bilirubin 5.5, AST 106, ALT 19, alkaline phosphatase 499. She was admitted for further monitoring and possible need for paracentesis. Liver US demonstrated no significant ascities. She did have a liver doppler and gallbladder US which showed gallstone and borderline dimmin ished portal vein velocity. She was started on lasix IVP and her spironolactone was increased. Patient seen and examined at bedside. She reports that she is having less abdominal pain and yesterday. She thinks she eats quite a bit yesterday with the Lasix but has had less urine output today. She denies any nausea or vomiting. General: non toxic, no distress, appears at stated age Derm: + Jaundice warm, dry Head: atraumatic, normocephalic, symmetric Eyes: EOMI, no lid lag, + icteric sclera Mouth: no lip lesion, mucus membranes moist Cardiovascular: S1S2 reg, no murmur, positive posterior tibial pulse bilateral, Lungs: CTA bilateral, no rhonchi, no rales , no accessory muscle use Abdominal: soft, distended, nontender to palpation, no guarding, no appreciable organomegaly Ext: no gross muscle atrophy, 1+ edema, no contractures Neuro: CN II-XI grossly intact, no focal neuro deficits Psych: Alert, oriented, appropriate affect Decompensated cirrhosis secondary to prior alcoholism Asymptomatic cholelithiasis -Not enough fluid for paracentesis -IV Lasix, spironolactone -GI recommendations appreciated -Bilirubin elevating - must avoid all alcohol on discharge - add cholestyramine for itching stop Benadryl as per the AAS[facility] Transaminitis with elevated bilirubin -Patient with recent worsening jaundice -Patient's gallbladder ultrasound with asymptomatic cholelithiasis, no dilated common bile duct, no definitive portal vein thrombosis -GI recommendations -Repeat CMP in a.m. COPD without exacerbation -Resume ipratropium, patient takes spiriva on outpatient basis, patient now thinks she takes Symbicort on an outpatient basis -When necessary bronchodilators Obesity, BMI 40.1 - likely secondary to fluid retention - outpatient structured weight loss DVT prophylaxis: SCDs Discussed with: patient, nursing Anticipated discharge date: in 1-[address]: home A total of 65 minutes was spent on the care of this complex patient more than 50% of the time was spent in counseling and care coordination. Objective - Vital Signs Vital signs: Vital Signs Temp 97.6 F 04/24/21 11:19 Pulse 73 04/24/21 11:19 Resp 16 04/24/21 11:19 BP 91/58 04/24/21 11:19 Pulse Ox 95 04/24/21 11:19 Intake & Output 04/23/21 04/24/21 04/24/21 18:59 06:59 18:59 Intake Total 1160 1260 Balance 1160 1260 Intake: Oral 1160 1260 Other: # Voids 2 2 3 - Labs CBC & Chem 7: 04/24/21 04:15 04/24/21 04:15 Labs: Abnormal Lab Results - Last 24 Hours (Table) 04/24/21 04/24/21 Range/Units 04:15 04:15 RBC 3.09 L (3.80-5.40) m/uL Hgb 11.2 L (11.4-16.0) gm/dL MCV 112.3 H (80.0-100.0) fL MCH 36.3 H (25.0-35.0) pg Macrocytosis Marked A Chloride 96 L (98-107) mmol/L Creatinine 1.21 H (0.52-1.04) mg/dL Glucose 107 H (74-99) mg/dL Total Bilirubin 5.6 H (0.2-1.3) mg/dL AST 139 H (14-36) U/L Alkaline Phosphatase 409 H (38-126) U/L
[2021-04-24 21:10] VITALS: RESP 18
[2021-04-25] MEDS: HYDROmorphone 0.5 MG/0.5 ML SYRINGE IVP PRN ×2 (01:58→08:03)
[2021-04-25 04:55] VITALS: BP 90/52; TEMP 98.7
[2021-04-25 06:25] LABS: ALT 20 U/L (4-34); AST 161 U/L (14-36); African American GFR (CKD) 65 (>60 ml/min/1.73 sqM); Albumin 3.5 g/dL (3.5-5.0); Alkaline Phosphatase 393 U/L (38-126); Anion Gap 9 mmol/L; Blood Urea Nitrogen 9 mg/dL (7-17); Carbon Dioxide 32 mmol/L (22-30); Chloride 94 mmol/L (98-107); Globulin 3.4 g/dL; Glucose 97 mg/dL (74-99); Non-African American GFR(CKD) 56 (>60 ml/min/1.73 sqM); Potassium 3.4 mmol/L (3.5-5.1); Sodium 135 mmol/L (137-145); Total Bilirubin 5.6 mg/dL (0.2-1.3); Total Protein 6.9 g/dL (6.3-8.2)
[2021-04-25] MEDS: FUROSEMIDE 10 MG/ML 4 ML VIAL IV SCH (07:16)
[2021-04-25] MEDS: IPRATROPIUM 0.5 MG/2.5 ML NEBU INHALATION SCH (07:20)
[2021-04-25 07:23] VITALS: PULSE 72
[2021-04-25] MEDS ORDERED: POTASSIUM CHLORIDE ER 20 MEQ TAB.ER PO STA (07:42)
[2021-04-25] MEDS ORDERED: SPIRONOLACTONE 25 MG TAB PO SCH (09:00)
--- NOTE | 2021-04-25 09:00 | P.DS ---
Providers Date of admission: 04/22/21 10:14 Expected date of discharge: 04/25/21 Attending physician: Jane Ordonez DO Consults: 04/22/21 10:08 Consult Physician Urgent Consulting Provider: Mariela Jefferson Consult Reason/Comments: Jaundice, liver cirrhosis, ascites Do you want consulting provider notified?: Yes Primary care physician: Stated None Hospital Course: Discharge Diagnosis: Decompensated cirrhosis secondary to prior alcoholism Asymptomatic cholelithiasis Transaminitis with elevated bilirubin COPD without exacerbation Obesity with BMI 39.1 Hospital Course: Patient is a 55-year-old female with a history of cirrhosis, GERD, and prior tobacco abuse who presented to the ER with complaints of abdominal pain and swelling. On arrival her vital signs within normal limits. Laboratory analysis showed a lactic acid of 2.6, total bilirubin 5.5, AST 106, ALT 19, alkaline phosphatase 499. She was admitted for further monitoring and possible need for paracentesis. Liver US demonstrated no significant ascities. She did have a liver doppler and gallbladder US which showed gallstone and borderline dimmin ished portal vein velocity. She was started on lasix IVP and her spironolactone was increased. She diuresed well and was feeling improved. Her bilirubin escalated to a high of greater than 6 and then again down trended. She was determined stable for discharge home. She was seen and evaluated by GI during her hospital stay and will follow with them while in [place]. Follow-up: Has had problems with kidney due to diuretics in the past Lasix 40mg twice daily and spironolactone 50 mg dialy, follow-up with Dr. Jefferson in 2 week, PCP is in [facility] return to [facility] until June. Patient seen and examined at bedside. No chest pain, SOB, or nausea, belly is better itching is a little better Vital signs reviewed and stable. General: non toxic, no distress, appears at stated age Derm:+ Jaundice, warm, dry Head: atraumatic, normocephalic, symmetric Eyes: EOMI, no lid lag, +icteric sclera Mouth: no lip lesion, mucus membranes moist Cardiovascular: S1S2 reg, no murmur, positive posterior tibial pulse bilateral, Lungs: CTA bilateral, no rhonchi, no rales , no accessory muscle use Abdominal: soft, + distended, nontender to palpation, no guarding, no appreciable organomegaly Ext: no gross muscle atrophy, no edema, no contractures Neuro: CN II-XI grossly intact, no focal neuro deficits Psych: Alert, oriented, appropriate affect A total of 35 minutes of time were spent preparing this complex discharge summary . Patient Condition at Discharge: Fair Plan - Discharge Summary Discharge Rx Participant: Yes New Discharge Prescriptions: New Cholestyramine (with Sugar) [Questran Packet] 4 gm PO DAILY@1000 #30 packet Furosemide [Lasix] 40 mg PO BID #60 tablet Budesonide/Formoterol Fumarate [Symbicort 160-4.5 Mcg Inhaler] 2 puff INHALATION BID #1 inhaler Continue Omeprazole [PriLOSEC] 20 mg PO AC-BID Ibuprofen [Advil] 600 mg PO Q8HR PRN PRN Reason: Pain Multivit with Calcium,Iron,Min [Women's Daily Multivitamin] 1 tab PO DAILY Potassium Gluconate 99 mg PO DAILY Folic Acid 0.8 mg PO DAILY Spironolactone [Aldactone] 50 mg PO DAILY Magnesium 250 mg PO DAILY Liver Aid 1 tab PO DAILY Cholecalciferol [Vitamin D3 (25 Mcg = 1000 Iu)] 25 mcg PO DAILY Milk Thistle 150 mg PO DAILY Albuterol Sulfate [Proair Hfa] 1 - 2 puff INHALATION RT-QID PRN PRN Reason: Shortness Of Breath Discontinued Furosemide [Lasix] 20 mg PO DAILY Discharge Medication List Ibuprofen [Advil] 600 mg PO Q8HR PRN 05/29/15 [History] Multivit with Calcium,Iron,Min [Women's Daily Multivitamin] 1 tab PO DAILY 05/29/15 [History] Omeprazole [PriLOSEC] 20 mg PO AC-BID 05/29/15 [History] Albuterol Sulfate [Proair Hfa] 1 - 2 puff INHALATION RT-QID PRN 04/22/21 [History] Cholecalciferol [Vitamin D3 (25 Mcg = 1000 Iu)] 25 mcg PO DAILY 04/22/21 [History] Folic Acid 0.8 mg PO DAILY 04/22/21 [History] Liver Aid 1 tab PO DAILY 04/22/21 [History] Magnesium 250 mg PO DAILY 04/22/21 [History] Milk Thistle 150 mg PO DAILY 04/22/21 [History] Potassium Gluconate 99 mg PO DAILY 04/22/21 [History] Spironolactone [Aldactone] 50 mg PO DAILY 04/22/21 [History] Budesonide/Formoterol Fumarate [Symbicort 160-4.5 Mcg Inhaler] 2 puff INHALATION BID #1 inhaler 04/25/21 [Rx] Cholestyramine (with Sugar) [Questran Packet] 4 gm PO DAILY@1000 #30 packet 04/25/21 [Rx] Furosemide [Lasix] 40 mg PO BID #60 tablet 04/25/21 [Rx] Follow up Appointment(s)/Referral(s): Mairela Jefferson MD [STAFF PHYSICIAN] - 2 Weeks None,Stated [Primary Care Provider] - 1-2 days Patient Instructions/Handouts: Cirrhosis (DC), Ascites (DC) Activity/Diet/Wound Care/Special Instructions: Activity: as tolerated Diet: 4 gram sodium and 2L fluid restriction Special Instructions: abstain from alcohol Discharge Disposition: HOME SELF-CARE
[2021-04-25] MEDS ORDERED: CHOLESTYRAMINE (WITH SUGAR) 4 GM PACKET PO SCH (10:00)
== END 2021-04-25 09:05 | disposition home or self-care (01) | DRG 433 ==
LOC: EC 08:23 → 5NMEDONC 10:14
PROVIDERS: ADMIT Internal Medicine; ATTEND Internal Medicine
DX: K70.31 Alcoholic cirrhosis of liver with ascites (principal); Z68.41 Body mass index [BMI] 40.0-44.9, adult; E66.9 Obesity, unspecified; K21.9 Gastro-esophageal reflux disease without esophagitis; F10.20 Alcohol dependence, uncomplicated; R60.0 Localized edema; J44.9 Chronic obstructive pulmonary disease, unspecified; K80.20 Calculus of gallbladder without cholecystitis without obstruction; R74.01 Elevation of levels of liver transaminase levels; Z79.899 Other long term (current) drug therapy; Z87.891 Personal history of nicotine dependence; Z90.710 Acquired absence of both cervix and uterus; Z98.51 Tubal ligation status; Z80.9 Family history of malignant neoplasm, unspecified
CPT/HCPCS: 36415; 76705; 80053; 81001; 82150; 83605; 83690; 83735; 85025; 85027; 85610; 85730; 94640; 99284